=== PATIENT | female | born 1940 | race Caucasian/White ===

== ENCOUNTER 2016-10-19 11:47 | Emergency (ER) | payer MEDICARE ==
[~2016-10-19 11:47] MED LIST: ASPIRIN EC81 MG PO; ATIVAN0.5 MG PO; CLARITIN10 MG PO; GLUCOTROL5 MG PO; HYDROCHLOROTHIA25 MG PO; METOCLOPRAMIDE H5 MG PO; MOBIC15 MG PO; NEURONTIN300 MG PO; NITROGLYCERIN0.4 MG SL; PERCOCET 10-321 EACH PO; POTASSIUM GLUCO99 MG PO; PROTONIX40 MG PO; ZOCOR40 MG PO
== END 2016-10-19 15:21 | disposition home or self-care (01) ==
LOC: ER 11:47
DX: R07.89 Other chest pain (principal); E11.9 Type 2 diabetes mellitus without complications; I10 Essential (primary) hypertension; Z88.2 Allergy status to sulfonamides; Z88.5 Allergy status to narcotic agent; Z79.84 Long term (current) use of oral hypoglycemic drugs; Z79.899 Other long term (current) drug therapy
CPT/HCPCS: 36415